=== PATIENT | female | born 1980 | race Caucasian/White ===

== ENCOUNTER 2024-03-26 21:46 | Emergency (ER) | payer BC, SELFPAY ==
[2024-03-26 22:01] LABS: % Basophils 0.5 % (0-2); % Eosinophils 1.4 % (0-6); % Immature Granulocytes 0.4 % (0-0.5); % Lymphocytes 26.2 % (20.5-51.1); % Monocytes 4.6 % (1.7-9.3); % Neutrophils 66.9 % (42.2-75.2); Absolute Basophils 0.1 10^3/uL (0-0.2); Absolute Eosinophils 0.2 10^3/uL (0-0.7); Absolute Lymphocytes 2.9 10^3/uL (1.2-3.4); Absolute Monocytes 0.5 10^3/uL (0.1-0.6); Absolute Neutrophils 7.4 10^3/uL (1.4-6.5); Hematocrit 38.8 % (37.0-47.0); Hemoglobin 12.8 g/dL (12.0-16.0); Mean Corpuscular Hgb 30.6 pg (27.0-31.0); Mean Corpuscular Volume 92.8 fL (81.0-99.0); Mean Platelet Volume 9.1 fL (7.4-10.4); Nucleated Red Blood Cells % 0 %; Platelet Count 344 10^3/uL (130-400); Red Blood Cell Count 4.18 10^6/uL (4.20-5.40); Red Cell Dist. Width 12.7 % (11.5-14.5)
[2024-03-26 22:13] LABS: HCG, Serum Qualitative Screen Negative
[2024-03-26 22:23] LABS: ALT (SGPT) 29 U/L (0-35); AST (SGOT) 25 U/L (14-36); Albumin 4.4 g/dl (3.5-5.0); Alkaline Phosphatase 64 U/L (38-126); Blood Urea Nitrogen 18 mg/dl (7-17); Calcium 9.2 mg/dl (8.4-10.2); Carbon Dioxide 23 mmol/L (22-30); Chloride 106 mmol/L (98-107); Glucose 100 mg/dl (70-99); Sodium 138 mmol/L (135-145); Total Bilirubin 1.3 mg/dl (0.2-1.3); Total Protein 6.9 g/dl (6.3-8.2); eGFR > 60.00
--- NOTE | 2024-03-26 23:25 | ED.GENMED ---
History of Present Illness
<MARIA GUADALUPE Min - Last Filed: 03/26/24 23:36>
General
Chief Complaint: Headache
Source: patient
Time Seen by Provider: 03/26/24 23:13
Nursing documentation reviewed up to this point in time: agreed with
History of Present Illness
History of Present Illness:
Pt is a 43 yo F who presents to the emergency department for a migraine with associated nausea, dry heaving, diarrhea, and reduced appetite x 1 day. Pt states that the symptoms began around 6am this morning and they have been constant. She reports
the headache is located in the front of her head and rates it a 9/10. She explains that she has been feeling nauseous dry heaving today. She states that she has been unable to eat today and has a reduced appetite. Pt denies taking any pain
medication for relief today. She also reports having photophobia. Pt denies vomiting, abdominal pain, fever, chills, changes in hearing or vision, dysuria, urinary frequency, or shortness of breath. Pt admits to having a history of migraines. She
states that she is currently on the waitlist for [facility]. She denies being on a daily medication for migraine management.
Past History
<MARIA GUADALUPE Min - Last Filed: 03/26/24 23:36>
Past History
ED Past Medical History: Other (Complicated migraines) and Other (Neuroendocrine/paraganglionic tumors)
ED Past Surgical History: Gynecological, Urological and Other ([place] teeth)
Social History
Tobacco: Non-smoker
Alcohol: None
Drug: None
Personal:
Living: with family
Employment: Employed
Family History
Family History: Other (Noncontributory)
Review of Systems
<MARIA GUADALUPE Min - Last Filed: 03/26/24 23:36>
Review of Systems
Allergies reviewed?: Yes
Constitutional: Reports no symptoms
Respiratory: Reports no symptoms
Cardiac: Reports no symptoms
ABD/GI: Reports nausea, diarrhea and anorexia
: Reports no symptoms
Musculoskeletal: Reports no symptoms
Neurological: Reports headache
Endocrine: Reports no symptoms
Phy Exam
<Mary Albarran [facility] - Last Filed: 03/26/24 23:36>
General Physical Exam
General Presentation: mild distress
General age: appears stated age
General Skin: warm
General Habitus: normal
General Mental: alert
General Hydration: appears well hydrated
Cardiovascular Exam
Cardiovascular Exam: regular rate/rhythm
Pulmonary Exam
Pulmonary Exam: lungs clear
Gastrointestinal Exam
Gastrointestinal Exam: normal bowel sounds, non tender and soft
Neurological Exam
Neurological Exam: alert, oriented x3 and speech normal
Course
<Mary Albarran, [facility] - Last Filed: 03/26/24 23:36>
Orders/Labs/Results
Orders:
Orders
03/26/24 21:50
Test Result ONCE
03/26/24 21:55
Complete Blood Count/With Diff Urgent
Comprehensive Metabolic Panel Urgent
HCG, Serum Qualitative Screen Urgent
03/26/24 23:28
CT Head W/o Iv Contrast Urgent
Comment:
Reason For Exam: headache
0.9% Sodium Chloride 1000 ml [Nss] 1,000 ml IV BOLUS
Dexamethasone Sod Phosphate [Decadron] 10 mg IV NOW STA
Diphenhydramine [Benadryl] 25 mg IV NOW STA
Ketorolac [Toradol] 15 mg IV NOW STA
Metoclopramide [Reglan] 10 mg IV NOW STA
Abnormal Lab Results
03/26/24
21:55
WBC 11.0 H 10^3/uL
(4.8-10.8)
RBC 4.18 L 10^6/uL
(4.20-5.40)
Absolute Neuts (auto) 7.4 H 10^3/uL
(1.4-6.5)
BUN 18 H mg/dl
(7-17)
Glucose 100 H mg/dl
(70-99)
03/26/24 21:55
03/26/24 21:55
Vital Signs
Initial and Last Documented VS:
Initial Vital Signs
Temp
98 F
03/26/24 21:47
Last Documented Vital Signs
Temp BP Pulse Ox
98 F 107/69 97
03/26/24 21:47 03/27/24 05:00 03/27/24 05:01
<Ac Jorge, DO - Last Filed: 03/27/24 05:38>
Orders/Labs/Results
Orders:
Orders
03/26/24 21:50
Test Result ONCE
03/26/24 21:55
Complete Blood Count/With Diff Urgent
Comprehensive Metabolic Panel Urgent
HCG, Serum Qualitative Screen Urgent
03/26/24 23:28
CT Head W/o Iv Contrast Urgent
Comment:
Reason For Exam: headache
0.9% Sodium Chloride 1000 ml [Nss] 1,000 ml IV BOLUS
Dexamethasone Sod Phosphate [Decadron] 10 mg IV NOW STA
Diphenhydramine [Benadryl] 25 mg IV NOW STA
Ketorolac [Toradol] 15 mg IV NOW STA
Metoclopramide [Reglan] 10 mg IV NOW STA
Abnormal Lab Results
03/26/24
21:55
WBC 11.0 H 10^3/uL
(4.8-10.8)
RBC 4.18 L 10^6/uL
(4.20-5.40)
Absolute Neuts (auto) 7.4 H 10^3/uL
(1.4-6.5)
BUN 18 H mg/dl
(7-17)
Glucose 100 H mg/dl
(70-99)
03/26/24 21:55
03/26/24 21:55
Vital Signs
Initial and Last Documented VS:
Initial Vital Signs
Temp
98 F
03/26/24 21:47
Last Documented Vital Signs
Temp BP Pulse Ox
98 F 107/69 97
03/26/24 21:47 03/27/24 05:00 03/27/24 05:01
<MARIA GUADALUPE Min - Last Filed: 03/26/24 23:36>
MDM/Problems Addressed
Differential Diagnosis Includes:
Migraine, tension headache
<MARIA GUADALUPE Min - Last Filed: 03/26/24 23:36>
*Critical Care Note
Total Time (30-74mins, 75-104mins- exclusive of procedures): Not Applicable
<Ac Jorge DO - Last Filed: 03/27/24 05:38>
Update Note
Update Note:
03/27/2024 0537 AM: Patient reports her headache has resolved. Wishes to be discharged.
ED Attending Note
<MARIA GUADALUPE Min - Last Filed: 03/26/24 23:36>
-
Portions of this chart may have been created with voice recognition software.� Occasional wrong word or��sound alike� substitutions may have occurred due to the inherent limitations of voice recognition software.
<Ac Jorge DO - Last Filed: 03/27/24 05:38>
ED Attending Note
Patient seen and examined by attending physician: Yes
I performed the substantive portion of visit, reviewed & personally made and approve the management plan that is documented in note by myself or KEVIN.: Yes
ED Attending Note:
Pleasant 43-year-old female presents to the emergency department with headache. She does have a history of migraines and states that this is a typical migraine. She did have vomiting and diarrhea as well as congestion in her head. She did not
take any medications. She came into the emergency department for evaluation. 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 Patient states that she has had migraine headaches much more severe than this. Patient was seen
in conjunction with the PA student. I have reviewed and agree with the history and treatment plan presented. On my independent physical exam, patient is awake, alert, and oriented x3 close blood acute distress. No respiratory distress. Skin is
warm and dry. She is mentating appropriately.
Patient to get a CAT scan of the head. She will get a headache cocktail.
Discharge Plan
Departure
Patient Disposition: Home (Routine Discharge)
Date of Disposition: 03/27/24
Time of Disposition: 05:37
Patient with high blood pressure during this ER visit?: No
Condition: Good
Discharge Problem:
Headache
Instructions: Migraines (DC), Headache, Adult (DC)
Prescriptions:
No Action
pantoprazole 40 MG tablet,delayed release (DR/EC)
40 mg PO DAILY
gabapentin 300 MG capsule
300 mg PO TID
simethicone [Gas-X Extra Strength] 125 MG tablet,chewable
125 mg PO QID
acetaminophen 650 MG/20.3 ML solution
650 mg PO Q4HPRN PRN (Reason: pain)
ondansetron 4 MG tablet,disintegrating
4 mg PO QIDPRN PRN (Reason: nausea/vomiting) Qty: 20 0RF
prednisone 20 MG tablet
40 mg PO DAILY Qty: 6 0RF
meloxicam 7.5 MG tablet
7.5 mg PO BID Qty: 14 0RF
diazepam 5 MG tablet
5 mg PO BID PRN (Reason: Pain) Qty: 10 0RF
Referrals:
Samantha Alcantara DO [Family Provider] -
Activity Restrictions/Additional Instructions:
It was a pleasure meeting you and taking part in your care. We hope for your continued healing and wellness.
Please read discharge instructions in their entirety. However, they are for general education and may not describe your exact diagnosis at discharge. Information on your ER visit and medical conditions were discussed with you along with appropriate
follow up information...
If indicated, please take your medications as instructed and indicated on discharge paperwork.
Please schedule a follow up appointment as directed. Call to schedule an appointment
Please return to the emergency department with ANY change in, persisting, or worsening of symptoms. If any of your symptoms do not improve, or persist, or become more severe within 6-12 hours, please return to the emergency department for further
care.
Please return to the emergency department if you develop a headache, neck pain/stiffness, fever greater than 100.4F, chest pain, shortness of breath, persistent nausea, vomiting, slurred speech, difficulty walking, numbness/tingling, weakness, signs
of infection or any other symptoms that are worrisome to you.
If you have any questions or concerns please do not hesitate to call the Hospital at or E-mail me directly at [email or web address]
Interventions
Interventions:
*Risk Screen - Suicide Last Done: 03/26/24 21:47
*General Assessment Last Done: 03/26/24 21:47
*Neglect/Abuse Screening Last Done: 03/26/24 21:47
ED- Fall Risk Assessment Last Done: 03/26/24 23:59
*ED COVID-19 Vaccine History Last Done: 03/26/24 21:47
ED- Neurological Assessment Last Done: 03/26/24 23:59
Discharge Date and Time
Print Language: MALTESE
[2024-03-26 23:54] VITALS: BP 124/90
[2024-03-26] MEDS: TORADOL 15 MG IV (23:54)
[2024-03-26] MEDS: BENADRYL 25 MG IV (23:55)
[2024-03-26] MEDS: REGLAN 10 MG IV (23:56)
[2024-03-26] MEDS: NSS 1000 IV (23:56)
[2024-03-26] MEDS: DECADRON 10 MG IV (23:56)
[2024-03-26 23:58] VITALS: BMI 28.9
[2024-03-27] VITALS (7 sets, daily range): BP systolic 107–123; BP diastolic 69–88
== END 2024-03-27 06:18 | disposition home or self-care (01) ==
LOC: EMR 21:46
PROVIDERS: Emergency Medicine; EMERGENCY PHYSICIAN Student in an Organized Health Care Education/Training Program; FAMILY PHYSICIAN Family Medicine
DX: R51.9 Headache, unspecified (principal); R19.7 Diarrhea, unspecified; R11.0 Nausea
CPT/HCPCS: 99284; 96374; 96375; 70450; 80053; 84703; 85025

== ENCOUNTER 2024-07-03 15:27 | Emergency (ER) | payer BC, MEDICARE, SELFPAY ==
[2024-07-03 15:35] VITALS: BP 141/89
[2024-07-03 16:08] LABS: % Basophils 0.7 % (0-2); % Eosinophils 0.5 % (0-6); % Immature Granulocytes 0.1 % (0-0.5); % Lymphocytes 5.9 % (20.5-51.1); % Monocytes 6.3 % (1.7-9.3); % Neutrophils 86.5 % (42.2-75.2); Absolute Basophils 0.1 10^3/uL (0-0.2); Absolute Lymphocytes 0.4 10^3/uL (1.2-3.4); Absolute Monocytes 0.5 10^3/uL (0.1-0.6); Absolute Neutrophils 6.4 10^3/uL (1.4-6.5); Hematocrit 39.6 % (37.0-47.0); Hemoglobin 13.4 g/dL (12.0-16.0); Mean Corp Hgb Conc. 33.8 g/dL (33.0-37.0); Mean Corpuscular Hgb 30.5 pg (27.0-31.0); Mean Corpuscular Volume 90.2 fL (81.0-99.0); Mean Platelet Volume 9.1 fL (7.4-10.4); Nucleated Red Blood Cells % 0 %; Platelet Count 369 10^3/uL (130-400); Red Blood Cell Count 4.39 10^6/uL (4.20-5.40); Red Cell Dist. Width 12.7 % (11.5-14.5); White Blood Cell Count 7.4 10^3/uL (4.8-10.8)
[2024-07-03 16:16] LABS: HCG, Serum Qualitative Screen Negative
[2024-07-03 16:18] LABS: ALT (SGPT) 27 U/L (0-35); AST (SGOT) 24 U/L (14-36); Albumin 4.3 g/dl (3.5-5.0); Alkaline Phosphatase 85 U/L (38-126); Blood Urea Nitrogen 14 mg/dl (7-17); Calcium 9.4 mg/dl (8.4-10.2); Carbon Dioxide 19 mmol/L (22-30); Chloride 108 mmol/L (98-107); Glucose 101 mg/dl (70-99); Potassium 4.4 mmol/L (3.5-5.1); Sodium 137 mmol/L (135-145); Total Bilirubin 0.9 mg/dl (0.2-1.3); Total Protein 7.1 g/dl (6.3-8.2); eGFR > 60.00
[2024-07-03 17:51] VITALS: BP 128/88
--- NOTE | 2024-07-03 18:08 | ED.GENMED ---
History of Present Illness
General
Chief Complaint: Headache
Source: patient
Exam Limitations: none
Time Seen by Provider: 07/03/24 17:57
History of Present Illness
History of Present Illness:
43yoF with a history of migraines, GERD, and paraganglioma of the bladder s/p cystectomy currently in remission presenting for evaluation of a headache. Headache began yesterday afternoon around 2 PM. Headache was gradual in onset. Her pain is
located in the bitemporal region. Headache feels similar to her prior migraines. She took a dose of Toradol yesterday evening but the pain was still present when she woke up this morning. She denies this being the worst headache of her life.
Headache is associated with photophobia, nausea, and vomiting. Of note, patient's son is currently sick with influenza B and patient had influenza A 3 weeks ago. She is also under a lot of stress as her [id number] recently . She
denies any fevers, neck stiffness, dizziness, visual changes, weakness. She was last seen in the ED March 2024 for a headache and head CT was normal at that time.
Past History
Past History
ED Past Medical History: Other (Complicated migraines) and Other (Neuroendocrine/paraganglionic tumors)
ED Past Surgical History: Gynecological, Urological and Other ([place] teeth)
Social History
Tobacco: Non-smoker
Alcohol: None
Drug: None
Personal:
Living: with family
Employment: Employed
Family History
Family History: Other (Noncontributory)
Phy Exam
Physical Exam
Physical Exam:
Sitting in a dark room. Non-toxic appearing
General Physical Exam
General Presentation: well appearing
General Skin: warm and dry
General Habitus: normal
General Mental: alert
ENT Exam
ENT Exam: normocephalic and other (No nuchal rigidity)
Eye Exam
Eye Exam: PERRL
Pulmonary Exam
Pulmonary Exam: no respiratory distress
Neurological Exam
Neurological Exam: alert, no motor deficits, speech normal and other (5/5 strength in all extremities. Normal finger to nose and heel to lucas bilaterally. )
[place] Coma Scale
Eye Opening: Spontaneous
Verbal Response: Oriented
Motor Response: Obeys Commands
GCS Total Score: 15
Skin Exam
Skin Exam: normal color and warm/dry
Psychiatric Exam
Psychiatric Exam: normal mood/affect
Course
Orders/Labs/Results
Orders:
Orders
07/03/24 15:39
Test Result ONCE
07/03/24 15:53
Complete Blood Count/With Diff Urgent
Comprehensive Metabolic Panel Urgent
HCG, Serum Qualitative Screen Urgent
Influenza A+B Rapid Molecular Urgent
SARAVANAN Source: Nasal Swab
Specimen Description:
07/03/24 18:07
0.9% Sodium Chloride 1000 ml [Nss] 1,000 ml IV BOLUS
Diphenhydramine [Benadryl] 25 mg IV NOW STA
Ketorolac [Toradol] 15 mg IV NOW STA
Magnesium Sulfate 2 Gram/50 ml [Magnesium Sulfate] 2 gram in 50 ml IV NOW
Metoclopramide [Reglan] 10 mg IV NOW STA
07/03/24 19:39
Dexamethasone Sod Phosphate [Decadron] 10 mg IV NOW STA
Abnormal Lab Results
07/03/24
15:53
Absolute Lymphs (auto) 0.4 L 10^3/uL
(1.2-3.4)
Neutrophils % 86.5 H %
(42.2-75.2)
Lymphocytes % 5.9 L %
(20.5-51.1)
Chloride 108 H mmol/L
(98-107)
Carbon Dioxide 19 L mmol/L
(22-30)
Glucose 101 H mg/dl
(70-99)
07/03/24 15:53
07/03/24 15:53
Vital Signs
Initial and Last Documented VS:
Initial Vital Signs
Temp Pulse Resp BP Pulse Ox
98.5 F 124 18 141/89 98
07/03/24 15:35 07/03/24 15:35 07/03/24 15:35 07/03/24 15:35 07/03/24 15:35
Last Documented Vital Signs
Temp Pulse Resp BP Pulse Ox
98.5 F 112 20 128/88 99
07/03/24 15:35 07/03/24 17:51 07/03/24 17:51 07/03/24 17:51 07/03/24 17:51
MDM/Problems Addressed
Differential Diagnosis Includes:
43yoF here for a headache that started yesterday afternoon. Hx of migraines and this feels the same. Associated with photophobia and n/v. She is sitting in a dark room on initial exam. She is well appearing and non-toxic. No focal neuro deficits or
meningismus noted. Differential diagnosis includes but is not limited to: migraine, tension headache, viral illness, dehydration, doubt intracranial hemorrhage, no clinical signs of meningitis
Initial ED plan: Labs and influenza swab obtained in triage reviewed. HCG negative and influenza testing negative. IV migraine cocktail and reassess. Will defer head imaging given reassuring history/exam.
*Critical Care Note
Total Time (30-74mins, 75-104mins- exclusive of procedures): Not Applicable
Update Note
Update Note:
Patient feeling significantly improved on reassessment. Headache is down to a 3/10 in severity. She declines any further medications and would like to go home. Will give dose of Decadron prior to discharge. She was advised to follow-up with her
PCP. Strict ED return precautions discussed. Patient expressed understanding and was discharged in stable condition.
ED Attending Note
-
Portions of this chart may have been created with voice recognition software.� Occasional wrong word or��sound alike� substitutions may have occurred due to the inherent limitations of voice recognition software.
Discharge Plan
Departure
Patient Disposition: Home (Routine Discharge)
Date of Disposition: 07/03/24
Time of Disposition: 19:39
Patient with high blood pressure during this ER visit?: No
Discharge Problem:
Acute nonintractable headache
Instructions: Headache, Adult (DC)
Prescriptions:
No Action
pantoprazole 40 MG tablet,delayed release (DR/EC)
40 mg PO DAILY
gabapentin 300 MG capsule
300 mg PO TID
simethicone [Gas-X Extra Strength] 125 MG tablet,chewable
125 mg PO QID
acetaminophen 650 MG/20.3 ML solution
650 mg PO Q4HPRN PRN (Reason: pain)
ondansetron 4 MG tablet,disintegrating
4 mg PO QIDPRN PRN (Reason: nausea/vomiting) Qty: 20 0RF
prednisone 20 MG tablet
40 mg PO DAILY Qty: 6 0RF
meloxicam 7.5 MG tablet
7.5 mg PO BID Qty: 14 0RF
diazepam 5 MG tablet
5 mg PO BID PRN (Reason: Pain) Qty: 10 0RF
Referrals:
[facility] [Provider Group]
UNKNOWN - PT DOES,NOT KNOW [Family Provider] -
Activity Restrictions/Additional Instructions:
Drink plenty of fluids and rest. Take Tylenol and ibuprofen as needed.
Please follow-up with your family doctor. Return to the ER with any new or worsening symptoms.
Interventions
Interventions:
*Risk Screen - Suicide Last Done: 07/03/24 15:35
*General Assessment Last Done: 07/03/24 15:35
*ED- Fall Risk Assessment Last Done: 07/03/24 15:35
*ED COVID-19 Vaccine History Last Done: 07/03/24 15:35
ED- Neurological Assessment Last Done: 07/03/24 17:45
Discharge Date and Time
Print Language: FAROESE
[2024-07-03] MEDS: TORADOL 15 MG IV (18:18)
[2024-07-03] MEDS: BENADRYL 25 MG IV (18:19)
[2024-07-03] MEDS: MAGNESIUM SULFATE 50 IV (18:19)
[2024-07-03] MEDS: REGLAN 10 MG IV (18:19)
[2024-07-03] MEDS: NSS 1000 IV (18:20)
[2024-07-03] MEDS: DECADRON 10 MG IV (19:53)
[2024-07-03 19:58] VITALS: BP 124/67
== END 2024-07-03 20:07 | disposition home or self-care (01) ==
LOC: EMR 15:27
PROVIDERS: EMERGENCY PHYSICIAN Emergency Medicine
DX: G43.909 Migraine, unspecified, not intractable, without status migrainosus (principal)
CPT/HCPCS: 96365; 96375; 99284; 80053; 84703; 85025; 87502

== ENCOUNTER 2024-07-07 12:12 | Emergency (ER) | payer BC, MEDICARE, SELFPAY ==
[2024-07-07 12:19] VITALS: BP 122/86
[2024-07-07 12:38] VITALS: BMI 28.5
[2024-07-07 12:40] VITALS: BP 117/93
[2024-07-07 12:59] LABS: % Basophils 0.5 % (0-2); % Eosinophils 0.5 % (0-6); % Immature Granulocytes 0.2 % (0-0.5); % Lymphocytes 24.4 % (20.5-51.1); % Monocytes 10.8 % (1.7-9.3); % Neutrophils 63.6 % (42.2-75.2); Absolute Monocytes 0.5 10^3/uL (0.1-0.6); Absolute Neutrophils 2.7 10^3/uL (1.4-6.5); Hematocrit 42.5 % (37.0-47.0); Hemoglobin 14.7 g/dL (12.0-16.0); Mean Corp Hgb Conc. 34.6 g/dL (33.0-37.0); Mean Corpuscular Hgb 30.8 pg (27.0-31.0); Mean Corpuscular Volume 89.1 fL (81.0-99.0); Mean Platelet Volume 9.5 fL (7.4-10.4); Nucleated Red Blood Cells % 0 %; Platelet Count 250 10^3/uL (130-400); Red Blood Cell Count 4.77 10^6/uL (4.20-5.40); Red Cell Dist. Width 12.8 % (11.5-14.5); White Blood Cell Count 4.2 10^3/uL (4.8-10.8)
[2024-07-07 13:00] VITALS: BP 122/90
[2024-07-07 13:14] LABS: HCG, Serum Qualitative Screen Negative
[2024-07-07 13:15] LABS: ALT (SGPT) 119 U/L (0-35); AST (SGOT) 63 U/L (14-36); Albumin 4.4 g/dl (3.5-5.0); Alkaline Phosphatase 88 U/L (38-126); Blood Urea Nitrogen 16 mg/dl (7-17); Calcium 9.5 mg/dl (8.4-10.2); Carbon Dioxide 19 mmol/L (22-30); Chloride 104 mmol/L (98-107); Estimated Creatinine Clearance 97 ml/min; Glucose 109 mg/dl (70-99); Potassium 4.2 mmol/L (3.5-5.1); Sodium 137 mmol/L (135-145); Total Bilirubin 0.7 mg/dl (0.2-1.3); Total Protein 7.3 g/dl (6.3-8.2); eGFR > 60.00
[2024-07-07] MEDS: TORADOL 15 MG IV (13:16)
[2024-07-07 14:00] VITALS: BP 122/84
--- NOTE | 2024-07-07 14:44 | ED.GENMED ---
History of Present Illness
General
Chief Complaint: Cold/Flu/URI Symptoms
Time Seen by Provider: 07/07/24 12:28
History of Present Illness
History of Present Illness:
43-year-old female presents to the emergency department for evaluation of fevers and chills as well as nausea and vomiting. She reports she developed flulike symptoms with coughing 2 days ago, was seen in urgent care and started on Tamiflu and
benzonatate. This morning he has been vomiting unable to tolerate any p.o. fluids. Reports generalized chest discomfort related to coughing. Also with abdominal cramping. Reports urostomy due to cystectomy from paraganglion tumor, reports output
into the bag has been diminished.
Past History
Past History
ED Past Medical History: Other (Complicated migraines) and Other (Neuroendocrine/paraganglionic tumors)
ED Past Surgical History: Gynecological, Urological and Other ([place] teeth)
Social History
Tobacco: Non-smoker
Alcohol: None
Drug: None
Personal:
Living: with family
Employment: Employed
Family History
Family History: Other (Noncontributory)
Review of Systems
Review of Systems
Allergies reviewed?: Yes
All Other Systems: ROS reviewed and negative except as documented in HPI and ROS
Phy Exam
Physical Exam
Physical Exam:
GEN: Well appearing, NAD, WDWN
HEENT: Oral mucosa moist, no scleral icterus
Cardiac: Mildly tachycardic, regular
Lung: No respiratory distress, no tachypnea, lungs CTAB
Abdomen: Soft, grossly tender to all four quadrants, no rigidity. urostomy R side, minimal clear output
MSK: No gross deformity or injuries
Skin: Good color, no pallor or jaundice, no rashes
Neuro: AO x3, moves all extremities freely
Psych: Calm, cooperative
Sepsis
Sepsis Screening
Sepsis Assessment: Sepsis Ruled Out
Sepsis Screen
Sepsis Screen: Sepsis Ruled Out
Date: 07/07/24
Time: 15:11
Course
Orders/Labs/Results
Orders:
Orders
07/07/24 12:43
Test Result ONCE
07/07/24 12:49
Complete Blood Count/With Diff Urgent
Comprehensive Metabolic Panel Urgent
HCG, Serum Qualitative Screen Urgent
07/07/24 13:14
Ketorolac [Toradol] 15 mg IV NOW STA
Abnormal Lab Results
07/07/24
12:49
WBC 4.2 L 10^3/uL
(4.8-10.8)
Absolute Lymphs (auto) 1.0 L 10^3/uL
(1.2-3.4)
Monocytes % 10.8 H %
(1.7-9.3)
Carbon Dioxide 19 L mmol/L
(22-30)
Glucose 109 H mg/dl
(70-99)
AST 63 H U/L
(14-36)
ALT 119 H U/L
(0-35)
07/07/24 12:49
07/07/24 12:49
Vital Signs
Initial and Last Documented VS:
Initial Vital Signs
Temp Pulse Resp BP Pulse Ox
99.4 F 140 26 122/86 98
07/07/24 12:19 07/07/24 12:19 07/07/24 12:19 07/07/24 12:19 07/07/24 12:19
Last Documented Vital Signs
Temp Pulse Resp BP Pulse Ox
99.4 F 104 26 122/84 94
07/07/24 12:19 07/07/24 13:01 07/07/24 12:19 07/07/24 14:00 07/07/24 14:45
MDM/Problems Addressed
MDM/Problems Addressed:
I suspect patient's worsening symptoms may be secondary to Tamiflu. Discontinuation of this she is clinically well cerebrovascular standpoint. Lungs clear to auscultation. Discharged in stable condition, supportive care discussed
*Critical Care Note
Total Time (30-74mins, 75-104mins- exclusive of procedures): Not Applicable
ED Attending Note
-
Portions of this chart may have been created with voice recognition software.� Occasional wrong word or��sound alike� substitutions may have occurred due to the inherent limitations of voice recognition software.
Discharge Plan
Departure
Patient Disposition: Home (Routine Discharge)
Date of Disposition: 07/07/24
Time of Disposition: 14:48
Patient with high blood pressure during this ER visit?: No
Discharge Problem:
Influenza
Instructions: Flu in adults - ED discharge instructions
Prescriptions:
No Action
pantoprazole 40 MG tablet,delayed release (DR/EC)
40 mg PO DAILY
gabapentin 300 MG capsule
300 mg PO TID
simethicone [Gas-X Extra Strength] 125 MG tablet,chewable
125 mg PO QID
acetaminophen 650 MG/20.3 ML solution
650 mg PO Q4HPRN PRN (Reason: pain)
ondansetron 4 MG tablet,disintegrating
4 mg PO QIDPRN PRN (Reason: nausea/vomiting) Qty: 20 0RF
prednisone 20 MG tablet
40 mg PO DAILY Qty: 6 0RF
meloxicam 7.5 MG tablet
7.5 mg PO BID Qty: 14 0RF
diazepam 5 MG tablet
5 mg PO BID PRN (Reason: Pain) Qty: 10 0RF
Referrals:
UNKNOWN - PT DOES,NOT KNOW [Family Provider] -
Activity Restrictions/Additional Instructions:
Stop the Tamiflu, as it is likely contributing to your nausea and vomiting
Interventions
Interventions:
*Risk Screen - Suicide Last Done: 07/07/24 12:19
*General Assessment Last Done: 07/07/24 12:19
*Neglect/Abuse Screening Last Done: 07/07/24 12:19
*ED- Fall Risk Assessment Last Done: 07/07/24 12:38
*ED COVID-19 Vaccine History Last Done: 07/07/24 12:38
*Nursing Disposition Last Done: 07/07/24 15:03
ED- Pulmonary Assessment Last Done: 07/07/24 12:38
Discharge Date and Time
Discharge Date/Time: 07/07/24 15:04
Print Language: MARTINIQUAIS
== END 2024-07-07 15:04 | disposition home or self-care (01) ==
LOC: EMR 12:12
PROVIDERS: Physician Assistant; EMERGENCY PHYSICIAN Emergency Medicine
DX: J11.1 Influenza due to unidentified influenza virus with other respiratory manifestations (principal)
CPT/HCPCS: 99284; 96374; 80053; 84703; 85025